=== PATIENT | female | born 1940 | race Caucasian/White ===

== ENCOUNTER → 2017-01-11 | Outpatient (CLI) | payer MEDICARE, BC ==
[~2017-01-11] MED LIST: CITALOPRAM HBR20 MG PO; KLONOPIN1 MG PO; LIPITOR20 M1 PO; MIRAPEX0.5 MG PO; NORCO 5-325 TA1 EACH PO; OXYGEN M-15 INH; VESICARE10 MG PO; VITAMIN D1000 UNIT PO
== END | disposition disaster alternative care site (69) ==
LOC: GBCOE 13:40
DX: Z12.31 Encounter for screening mammogram for malignant neoplasm of breast (principal); Z85.3 Personal history of malignant neoplasm of breast; Z98.890 Other specified postprocedural states
CPT/HCPCS: G0202

== ENCOUNTER → 2017-06-27 | Outpatient (CLI) | payer MEDICARE, BC | LOC: GBCOE 10:07 | DX: C50.411 Malignant neoplasm of upper-outer quadrant of right female breast (principal) | CPT/HCPCS: G0206; G0279 ==